=== PATIENT | female | born 1940 | race Caucasian/White ===

== ENCOUNTER 2018-05-26 15:32 | Inpatient (IN) | payer OTHER, MEDICARE ==
[~2018-05-26] VITALS: Ht 154.9 cm; Wt 61.2 kg
[2018-05-26 15:36] VITALS: BP 197/101
--- NOTE | 2018-05-26 15:45 | NUR ---
PT. BIB DAUGHTER DUE TO WEAKNESS X 3 MONTHS. PT STATES " I HAVE BEEN FEELING WEAK FOR ABOUT 3 MONTHS BUT TODAY I FELT WEAKER THAN NORMAL I THINK MY BLOOD PRESSURE IS HIGH AND I FEEL DIZZY". PT. DENIES ANY N/V/D. PT DENIES ANY PAIN AT THIS TIME JUST DIZZYNESS. PT REPORTS BLURRY VISION. PT. IS ABLE TO SPEAK IN FULL AND COMPLETE SENTENCES, RR EVEN AND UNLABORED. PERLL BILATERALLY 3MM. SAFETY PRECAUTIONS INITIATED. ER MD NOTIFIED. WILL CONTINUE TO MONITOR. VSS AT THIS TIME.
[2018-05-26] MEDS ORDERED: ASPIRIN 81 MG TAB.CHEW PO ONE (16:15)
--- NOTE | 2018-05-26 16:40 | NUR ---
Pt. is unable to provide urine at this time. rr even and unlabored. vss. Mother at bedside.
--- NOTE | 2018-05-26 16:45 | NUR ---
Radiology at bedside at this time.
[2018-05-26 16:47] LABS: BASOPHILS # (AUTO) 0.1 K/uL (0.00-0.22); BASOPHILS % (AUTO) 0.6 % (0.0-2.0); EOSINOPHILS % (AUTO) 0.3 % (0.0-4.0); HEMATOCRIT 40.7 % (36-48); HEMOGLOBIN 13.7 g/dL (12.0-16.0); LYMPHOCYTES # (AUTO) 2.2 K/uL (2.5-16.5); LYMPHOCYTES % (AUTO) 22.6 % (20.5-51.1); MEAN CORPUSCULAR HEMOGLOBIN 30 pg (27-31); MEAN CORPUSCULAR HGB CONC 34 g/dL (33-37); MONOCYTES # (AUTO) 0.6 K/uL (0.8-1.0); MONOCYTES % (AUTO) 6.5 % (1.7-9.3); NEUTROPHILS # (AUTO) 6.8 K/uL (1.8-7.7); PLATELET COUNT (AUTO) 285 K/uL (140-450); RED BLOOD CELL COUNT(AUTO) 4.57 MIL/uL (4.20-5.40); RED CELL DISTRIBUTION WIDTH 13.2 % (11.6-13.7); WHITE BLOOD COUNT (AUTO) 9.7 K/uL (4.8-10.8)
[2018-05-26 17:11] LABS: CHLORIDE 96 mmol/L (98-107); GLUCOSE 157 mg/dL (74-106); SODIUM SERUM 137 mmol/L (136-145)
[2018-05-26 17:12] LABS: ALBUMIN 3.9 g/dL (3.4-5.0); ASPARTATE AMINOTRANSFERASE 17 U/L (15-37); CREATININE 0.8 mg/dL (0.6-1.3); TOTAL BILIRUBIN 0.4 mg/dL (0.0-1.0); UREA NITROGEN, BLOOD 15 mg/dL (7-18)
[2018-05-26] MEDS ORDERED: NAPR-54 PO (17:12)
[2018-05-26] MEDS ORDERED: METF500T PO (17:12)
[2018-05-26] MEDS ORDERED: BENA20TA PO (17:12)
[2018-05-26] MEDS ORDERED: OMEP20TC12 PO (17:12)
[2018-05-26] MEDS ORDERED: ORE25 PO (17:12)
[2018-05-26] MEDS ORDERED: METO50TE2 PO (17:12)
--- NOTE | 2018-05-26 17:18 | NUR ---
PT. AMBULATED TO RESTROOM WITH ASSISTANCE OF DAUGHTER . STEADY GAIT.
[2018-05-26] MEDS ORDERED: MAGNESIUM OXIDE 400 MG TAB PO ONE (17:20)
[2018-05-26] MEDS ORDERED: POTASSIUM CHLORIDE 10 MEQ TABER PO ONE (17:20)
[2018-05-26 17:28] LABS: APPEARANCE,URINE CLEAR (CLEAR); BILIRUBIN,URINE NEGATIVE (NEGATIVE); BLOOD, URINE TRACE-L (NEGATIVE); LEUKOCYTE ESTERASE ,URINE NEGATIVE (NEGATIVE); NITRITE, URINE NEGATIVE (NEGATIVE); UGLUCOSE NEGATIVE (NEGATIVE)
[2018-05-26 17:29] LABS: COLOR,URINE STRAW (YELLOW)
--- NOTE | 2018-05-26 17:38 | NUR ---
DR. ONEILL AT BEDSIDE AT THIS TIME .
[2018-05-26 17:40] LABS: RBC,URINE 0-5 (RARE) /HPF (0-5); WBC,URINE NONE SEEN /HPF (0-5)
--- NOTE | 2018-05-26 18:44 | NUR ---
Patient will be admitted to [facility]. Admited to TELE. Will go to room 107A. Belongings list completed. Report to ASHLY BARBOSA .
[2018-05-26] MEDS ORDERED: ACETAMINOPHEN 325 MG TAB PO PRN (19:15)
[2018-05-26] MEDS ORDERED: MORPHINE SULFATE 2 MG/ML SYR IVP PRN (19:15)
[2018-05-26] MEDS ORDERED: ONDANSETRON 4 MG/2 ML VIAL IVP PRN (19:15)
[2018-05-26] MEDS ORDERED: cloNIDine 0.1 MG TAB PO PRN (19:15)
[2018-05-26] MEDS ORDERED: INSULIN LISPRO SLIDING SCALE 100 UNITS/ML VIAL SUBQ PRN (19:15)
[2018-05-26] MEDS ORDERED: DEXTROSE 50% 50 ML SYR IVP PRN (19:15)
--- NOTE | 2018-05-26 19:15 | NUR ---
RECEIVED REPORT FROM DAY SHIFT NURSE AT PT BEDSIDE. PT IN STABLE CONDITION. FAMILY IS AT BEDSIDE. PT IS A/O X4. RA. IV ACCESS IN L AC 22G SALINE LOCKED. IV IS PATENT AND INTACT. SKIN IS INTACT. PT HAS NO C/O PAIN AT THIS TIME. BED IS LOCKED, LOW POSITION, SIDE RAILS UP X2. CALL LIGHT IS WITHIN REACH. BOARD UPDATED. FALL PRECAUTIONS IN PLACE. WILL BEGIN ADMISSION PROCESS.
[2018-05-26 20:00] VITALS: BP 168/81
[2018-05-26] MEDS: BLOOD GLUCOSE MONITORING 1 DEV DEV FS SCH (20:12)
[2018-05-26] MEDS: METOPROLOL 50 MG TAB PO SCH (20:13)
--- NOTE | 2018-05-26 20:13 | NUR ---
BS CHECKED, 140. NO COVERAGE NEEDED PER MD ORDERS. SCHEDULED MEDICATION GIVEN. PT TOLERATED WELL. WILL CONTINUE TO MONITOR PT.
--- NOTE | 2018-05-26 22:40 | NUR ---
PT ASLEEP IN BED. NO S/SX OF DISTRESS. WILL CONTINUE TO MONITOR PT.
[2018-05-27] VITALS: BP 135/97
--- NOTE | 2018-05-27 00:37 | NUR ---
NO CHANGE IN CONDITION. WILL CONTINUE TO MONITOR PT.
[2018-05-27 01:36] LABS: CREATINE KINASE MB 4.7 ng/mL (0-3.6)
--- NOTE | 2018-05-27 03:05 | NUR ---
PT ASLEEP IN BED. NO SIGNS OF DISTRESS. WILL CONTINUE TO MONITOR.
[2018-05-27 04:00] VITALS: BP 147/61
--- NOTE | 2018-05-27 05:50 | NUR ---
BS CHECKED, 139. NO COVERAGE NEEDED PER MD ORDERS. PT IS AWAKE IN BED. ALL NEEDS ARE MET AT THIS TIME. WILL CONTINUE TO MONITOR.
[2018-05-27] MEDS: BLOOD GLUCOSE MONITORING 1 DEV DEV FS SCH ×3 (05:58→17:23)
--- NOTE | 2018-05-27 07:10 | NUR ---
ENDORSED PT TO DAY SHIFT NURSE FOR CONTINUITY OF CARE. PT IN STABLE CONDITION.
--- NOTE | 2018-05-27 07:12 | NUR ---
RECEIVED BEDSIDE REPORT FROM FACETER NURSE. PATIENT IS AWAKE, ALERT AND ORIENTEDX4. DAUGHTER AT BEDSIDE. BRUNEIAN SPEAKING ONLY. SHE IS A FALL RISK, FALL RISK PROTOCOL IN PLACE. AMBULATE W ASSIST D/T DIZZINESS. SKIN IS INTACT. TELE MONITOR IN PLACE IV ON L AC 22G SALINE LOCK, CLEAN, DRY AND INTACT. BED IN LOW POSITION. CALL LIGHT WITHIN REACH. WILL CONTINUE TO MONITOR THE PATIENT
[2018-05-27 07:57] LABS: BASOPHILS # (AUTO) 0.1 K/uL (0.00-0.22); BASOPHILS % (AUTO) 0.8 % (0.0-2.0); EOSINOPHILS # (AUTO) 0.1 K/uL (0-0.4); EOSINOPHILS % (AUTO) 0.8 % (0.0-4.0); HEMATOCRIT 40.2 % (36-48); HEMOGLOBIN 13.4 g/dL (12.0-16.0); LYMPHOCYTES # (AUTO) 2.2 K/uL (2.5-16.5); LYMPHOCYTES % (AUTO) 31.6 % (20.5-51.1); MEAN CORPUSCULAR HEMOGLOBIN 30 pg (27-31); MEAN CORPUSCULAR HGB CONC 33 g/dL (33-37); MEAN CORPUSCULAR VOLUME 89.2 fL (80-94); MONOCYTES # (AUTO) 0.5 K/uL (0.8-1.0); NEUTROPHILS # (AUTO) 4.1 K/uL (1.8-7.7); NEUTROPHILS % (AUTO) 59.8 % (42.2-75.2); PLATELET COUNT (AUTO) 276 K/uL (140-450); RED BLOOD CELL COUNT(AUTO) 4.51 MIL/uL (4.20-5.40); RED CELL DISTRIBUTION WIDTH 13.3 % (11.6-13.7); WHITE BLOOD COUNT (AUTO) 6.8 K/uL (4.8-10.8)
[2018-05-27 08:00] VITALS: BP 136/64
[2018-05-27] MEDS ORDERED: metFORMIN 500 MG TAB PO SCH (08:00)
[2018-05-27] MEDS: METOPROLOL 50 MG TAB PO SCH (08:19)
--- NOTE | 2018-05-27 08:26 | NUR ---
ADMINISTERED MEDS. PATIENT TOLERATED WELL. WILL CONTINUE TO MONITOR THE PATIENT. BED IN LOW POSITION. CALL LIGHT WITHIN REACH. DAUGHTER AT BEDSIDE.
[2018-05-27 08:40] LABS: ANION GAP 12.8 (8-16); CARBON DIOXIDE 29.7 mmol/L (21-32); CHLORIDE 100 mmol/L (98-107); CREATININE 0.7 mg/dL (0.6-1.3); GLUCOSE 125 mg/dL (74-106); POTASSIUM 3.5 mmol/L (3.5-5.1); SODIUM SERUM 139 mmol/L (136-145); UREA NITROGEN, BLOOD 13 mg/dL (7-18)
[2018-05-27] MEDS ORDERED: amLODIPine 5 MG TAB PO SCH (09:00)
[2018-05-27] MEDS ORDERED: ASPIRIN 81 MG TAB.CHEW PO SCH (09:00)
[2018-05-27] MEDS ORDERED: PANTOPRAZOLE 40 MG TABEC PO SCH (09:00)
[2018-05-27] MEDS ORDERED: BENAZEPRIL 20 MG TAB PO SCH (09:00)
[2018-05-27] MEDS ORDERED: ENOXAPARIN 40 MG/0.4 ML SYR SUBQ SCH (09:00)
--- NOTE | 2018-05-27 09:02 | NUR ---
PATIENT HAS BEEN SCREENED AND CATEGORIZED MODERATE NUTRITION RISK. PATIENT WILL BE SEEN WITHIN 3-5 DAYS OF ADMISSION. 05/29/18 05/31/[address]
--- NOTE | 2018-05-27 10:40 | NUR ---
PATIENT LAYING IN BED. NO SIGNS OF DISTRESS. DAUGHTER AT BEDSIDE. WILL CONTINUE TO MONITOR, BED IN LOW POSITION. CALL LIGHT WITHIN REACH. DAUGHTER IS GOING TO ASSIST PATIENT WITH A BED BATH
--- NOTE | 2018-05-27 11:53 | NUR ---
CM NOTE ADMISSION CHART REVIEW DONE. INITIAL REVIEW FAXED TO [facility] [phone] WILMA # [phone]
--- NOTE | 2018-05-27 11:53 | NUR ---
PATIENT LAYING IN BED WAITING TO BE SEEN BY THE DOCTOR, SHE WANTS TO KNOW IF SHE WILL BE GOING HOME TODAY. WILL AWAIT THE DRS ARRIVAL. PATIENT IN STABLE CONDITION. DAUGHTER AT BEDSIDE
[2018-05-27 12:00] VITALS: BP 129/54
--- NOTE | 2018-05-27 12:56 | NUR ---
PATIENT AMBULATED TO THE RESTROOM W ASSIST. SHE IS NOW BACK IN BED. NO SIGNS OF DISTRESS ON ROOM AIR. BED IN LOW POSITION. CALL LIGHT WITHIN REACH. WILL CONTINUE TO MONITOR
[2018-05-27 13:00] LABS: FREE T4 (FREE THYROXINE) 1.06 ng/dL (0.76-1.46); THYROID STIMULATING HORMONE 1.25 uIU/mL (0.34-3.74)
--- NOTE | 2018-05-27 13:39 | NUR ---
PATIENT LAYING IN BED. NO SIGNS OF DISTRESS. BED IN LOW POSITION. CALL LIGHT WITHIN REACH
[2018-05-27] MEDS ORDERED: MAG SULF 2000 MG/WATER PREMIX 50 ML IV ONE (13:50)
[2018-05-27] MEDS: MAGNESIUM SULFATE 1GM in DEXTROSE 5% 100 ML PREMIX IV SCH ×2 (14:44→17:16)
--- NOTE | 2018-05-27 14:46 | NUR ---
ADMINISTERED MG RIDER. IV IS CLEAN, DRY AND INTACT. WILL CONTINUE TO MONITOR THE PATIENT. CALL LIGHT WITHIN REACH
--- NOTE | 2018-05-27 14:48 | NUR ---
CM NOTE PER [facility] GRICEL DILLON # [phone], INSURANCE WILL NOT AUTHORIZE HOME PT UNLESS THERE'S A PT EVAL DONE THAT QUALIFIES THE PATIENT FOR HOME PT. CHARGE NURSE JOSEPH RAMIREZ.
[2018-05-27 16:00] VITALS: BP 105/53
--- NOTE | 2018-05-27 16:00 | NUR ---
VITALS ARE STABLE. PATIENT HAS NO COMPLAINTS AT THIS TIME. FAMILY AT BEDSIDE. WILL CONTINUE TO MONITOR THE PATINET
--- NOTE | 2018-05-27 17:18 | NUR ---
ADMINISTERED SECOND BAG OF MG RIDER AND PATIENT MAY LEAVE AFTER. WILL WORK ON DISCHARGE PAPERWOR
--- NOTE | 2018-05-27 17:59 | NUR ---
DAUGHTER IN LAW AT BEDSIDE. SHE IS GOING TO TAKE PATIENT HOME WHEN MG RIDER IS DONE. EDUCATED PATIENT AND FAMILY ON DISEASE PROCESS, ABN S/SX WHEN TO GO TO THE ER, EDUCATED ON CONTINUITY OF MEDS, EDUCATED ON F/U W PCP IN A WEEK. PATIENT VERBALIZED UNDERSTANDING AND SIGNED DISCHARGE PAPERWORK. ONCE MED IS DONE PATIENT WILL BE DISCHARGED. PATIENT REFUSED PNA VACCINE
--- NOTE | 2018-05-27 18:50 | NUR ---
REMOVED IV TIP IS INTACT. ID BANDS REMOVED. PATIENT LEFT IN STABLE CONDITION W DAUGHTER IN LAW.
== END 2018-05-27 18:50 | disposition home or self-care (01) | DRG 199 ==
LOC: MED 15:32 → MTU 18:21
PROVIDERS: ADMIT Internal Medicine; ATTEND Internal Medicine
DX: I10 Essential (primary) hypertension (principal); E11.65 Type 2 diabetes mellitus with hyperglycemia; I44.7 Left bundle-branch block, unspecified; R07.9 Chest pain, unspecified; K21.9 Gastro-esophageal reflux disease without esophagitis; F32.9 Major depressive disorder, single episode, unspecified; M19.90 Unspecified osteoarthritis, unspecified site; E87.6 Hypokalemia; Z79.84 Long term (current) use of oral hypoglycemic drugs; Z79.899 Other long term (current) drug therapy; Z90.49 Acquired absence of other specified parts of digestive tract
CPT/HCPCS: 36415; 71045; 80048; 80053; 81001; 82550; 82553; 82948; 83690; 83735; 83880; 84439; 84443; 84484; 85025; 87081; 93005; 99285; J1650; J1815; J7030; Q0092

== ENCOUNTER 2018-09-20 21:51 | Emergency (ER) | payer OTHER, MEDICARE ==
[~2018-09-20] VITALS: Ht 152.4 cm; Wt 61.2 kg
[~2018-09-20 21:51] MED LIST: BENA20TA PO; METF500T PO; METO50TE2 PO; OMEP20TC12 PO; ORE25 PO
[2018-09-20 21:55] VITALS: BP 177/104
[2018-09-20] MEDS: NACL 0.9% 1,000 ML IV ONE (22:58)
[2018-09-20] MEDS: KETOROLAC 30 MG/ML VIAL IVP ONE (22:58)
[2018-09-20] MEDS: ONDANSETRON 4 MG/2 ML VIAL IVP ONE (22:58)
[2018-09-21 00:15] VITALS: BP 158/74
== END 2018-09-21 00:15 | disposition home or self-care (01) ==
LOC: MED 21:51
DX: R10.13 Epigastric pain (principal); R11.2 Nausea with vomiting, unspecified; R19.7 Diarrhea, unspecified; E11.9 Type 2 diabetes mellitus without complications; I10 Essential (primary) hypertension; Z90.49 Acquired absence of other specified parts of digestive tract; Z79.84 Long term (current) use of oral hypoglycemic drugs; Z79.899 Other long term (current) drug therapy
CPT/HCPCS: 81002; 96361; 96374; 96375; 99283; J1885; J2405; J7030

== ENCOUNTER 2018-09-21 15:13 | Inpatient (IN) | payer OTHER, MEDICARE ==
[~2018-09-21] VITALS: Ht 149.9 cm; Wt 58.1 kg
[2018-09-21 16:05] VITALS: BP 178/85
--- NOTE | 2018-09-21 16:30 | NUR ---
MARIBEL COMER WITH C/O DIARRHEA X 3 DAYS WITH DIZZINESS. PREVIOUS VOMITING X 2 DAYS. WAS SEEN YESTERDAY FOR THE SAME N/V. VSS; PATIENT POSITIONED FOR COMFORT; HOB ELEVATED; BEDRAILS UP X2; BED DOWN. ER MD MADE AWARE OF PT STATUS.
[2018-09-21 16:53] LABS: BASOPHILS % (AUTO) 0.3 % (0.0-2.0); HEMATOCRIT 43.8 % (36-48); HEMOGLOBIN 14.3 g/dL (12.0-16.0); LYMPHOCYTES % (AUTO) 12.6 % (20.5-51.1); MEAN CORPUSCULAR HEMOGLOBIN 30 pg (27-31); MEAN CORPUSCULAR HGB CONC 33 g/dL (33-37); MEAN CORPUSCULAR VOLUME 90.1 fL (80-94); MONOCYTES # (AUTO) 0.5 K/uL (0.8-1.0); MONOCYTES % (AUTO) 6.6 % (1.7-9.3); NEUTROPHILS # (AUTO) 6.2 K/uL (1.8-7.7); NEUTROPHILS % (AUTO) 80.5 % (42.2-75.2); PLATELET COUNT (AUTO) 260 K/uL (140-450); RED BLOOD CELL COUNT(AUTO) 4.86 MIL/uL (4.20-5.40); RED CELL DISTRIBUTION WIDTH 13.7 % (11.6-13.7); WHITE BLOOD COUNT (AUTO) 7.7 K/uL (4.8-10.8)
[2018-09-21 17:08] LABS: ALBUMIN 3.8 g/dL (3.4-5.0); ASPARTATE AMINOTRANSFERASE 27 U/L (15-37); CHLORIDE 104 mmol/L (98-107); CREATININE 0.8 mg/dL (0.6-1.3); GLUCOSE 141 mg/dL (74-106); SODIUM SERUM 141 mmol/L (136-145); TOTAL BILIRUBIN 0.3 mg/dL (0.0-1.0); UREA NITROGEN, BLOOD 24 mg/dL (7-18)
[2018-09-21] MEDS ORDERED: NACL 0.9% 1,000 ML IV ONE (17:50)
[2018-09-21] MEDS ORDERED: POTASSIUM CHLORIDE 10 MEQ TABER PO ONE (17:50)
[2018-09-21] MEDS ORDERED: INSULIN LISPRO SLIDING SCALE 100 UNITS/ML VIAL SUBQ PRN (19:10)
[2018-09-21] MEDS ORDERED: DEXTROSE 50% 50 ML SYR IVP PRN (19:10)
[2018-09-21] MEDS ORDERED: ONDANSETRON 4 MG/2 ML VIAL IVP PRN (19:10)
[2018-09-21] MEDS ORDERED: ACETAMINOPHEN 325 MG TAB PO PRN (19:10)
[2018-09-21] MEDS ORDERED: POTASSIUM CHL 20MEQ/D5-NS 1,000 ML IV ONE (19:10)
--- NOTE | 2018-09-21 19:10 | NUR ---
RECEIVED REPORT FROM ASHLY DE LOS SANTOS FOR CONTINUITY OF CARE. PT STABLE RESTING IN BED.
[2018-09-21 19:15] LABS: APPEARANCE,URINE CLEAR (CLEAR); BILIRUBIN,URINE NEGATIVE (NEGATIVE); BLOOD, URINE 2+ (NEGATIVE); COLOR,URINE YELLOW (YELLOW); LEUKOCYTE ESTERASE ,URINE NEGATIVE (NEGATIVE); NITRITE, URINE NEGATIVE (NEGATIVE); UGLUCOSE NEGATIVE (NEGATIVE)
[2018-09-21 19:16] LABS: RBC,URINE 0-5 (RARE) /HPF (0-5); WBC,URINE 0-5 (RARE) /HPF (0-5)
[2018-09-21 19:17] LABS: URINE AMORPHOUS URATE 1+ /HPF (None Seen)
[2018-09-21] MEDS ORDERED: cloNIDine 0.1 MG TAB PO PRN (19:20)
--- NOTE | 2018-09-21 19:55 | NUR ---
PT ARRIVED ON UNIT VIA GURNEY WITH ER NURSE. PT ABLE TO AMBULATE FROM GURNEY INTO BED. PT ACCOMPANIED BY FAMILY MEMBERS. PT IS AAOX4. PT IS ON RA WITH RESPIRATIONS EVEN AND UNLABORED. IV ACCES IN SHARI, SALINE LOCKED. IV IS PATENT AND INTACT. PT SKIN IS INTACT. NO C/O PAIN AT THIS TIME. MRSA SWAB COLLECTED. STOOL CULTURE PENDING, HAT PLACED IN BATHROOM FOR COLLECTION. PT EDUCATED ON IMPORTANCE AND VERBALIZED UNDERSTANDING. ORIENTED PT TO UNIT AND USE OF CALL LIGHT. BED IS LOCKED, LOW POSITION WITH SIDE RAILS UPX2. CALL LIGHT IS WITHIN REACH. BOARD UPDATED. WILL CONTINUE TO MONITOR.
--- NOTE | 2018-09-21 19:55 | NUR ---
REPORT GIVEN AND CARE TRANSFERED TO RAQUEL RN ROOM 114. TRANSFERED VIA GURNEY WITH VSS.
[2018-09-21 20:00] VITALS: BP 159/55
[2018-09-21] MEDS: BLOOD GLUCOSE MONITORING 1 DEV DEV FS SCH (21:12)
--- NOTE | 2018-09-21 21:13 | NUR ---
BS CHECKED, 116. NO COVERAGE NEEDED PER MD ORDERS.
[2018-09-21] MEDS: metroNIDAZOLE 500 MG/NS PREMIX 100 ML IV SCH (21:35)
[2018-09-21] MEDS: LEVOFLOXACIN 250 MG/D5 PREMIX 50 ML IV SCH (21:36)
--- NOTE | 2018-09-21 21:40 | NUR ---
IVF STARTED. ADMINISTERED SCHEDULED ANTIBIOTICS. STOOL SAMPLE COLLECTED. PT TOLERATED WELL. NO SIGNS OR SYMPTOMS OF DISTRESS. WILL CONTINUE TO MONITOR.
[2018-09-21] MEDS ORDERED: INFLUENZA VIRUS VACCINE QUAD 0.5 ML SYR IMVAC PRN (23:20)
[2018-09-21] MEDS ORDERED: PNEUMOCOCCAL VACCINE 23 MCG/0.5 ML VIAL IMVAC SCH (23:20)
[2018-09-22] VITALS: BP 106/67
--- NOTE | 2018-09-22 00:12 | NUR ---
VS WNL. PT RESTING COMFORTABLY IN BED. NO SIGNS OR SYMPTOMS OF DISTRESS. WILL CONTINUE TO MONITOR.
[2018-09-22] MEDS: metroNIDAZOLE 500 MG/NS PREMIX 100 ML IV SCH ×3 (05:46→22:01)
[2018-09-22] MEDS: PANTOPRAZOLE 40 MG TABEC PO SCH (05:46)
[2018-09-22] MEDS: BLOOD GLUCOSE MONITORING 1 DEV DEV FS SCH ×4 (05:49→21:10)
--- NOTE | 2018-09-22 05:51 | NUR ---
SCHEDULED MEDICATIONS ADMINISTERED. BS CHECKED, 123. NO COVERAGE NEEDED PER MD ORDERS. INCOME TAX ADMINISTRATOR AT BEDSIDE. PT TOLERATING WELL. NO SIGNS OR SYMPTOMS OF DISTRESS. WILL CONTINUE TO MONITOR.
[2018-09-22 07:18] LABS: BASOPHILS % (AUTO) 0.2 % (0.0-2.0); EOSINOPHILS % (AUTO) 0.6 % (0.0-4.0); HEMATOCRIT 36.7 % (36-48); LYMPHOCYTES # (AUTO) 1.3 K/uL (2.5-16.5); LYMPHOCYTES % (AUTO) 22.3 % (20.5-51.1); MEAN CORPUSCULAR HEMOGLOBIN 29 pg (27-31); MEAN CORPUSCULAR HGB CONC 33 g/dL (33-37); MONOCYTES # (AUTO) 0.6 K/uL (0.8-1.0); MONOCYTES % (AUTO) 9.8 % (1.7-9.3); NEUTROPHILS # (AUTO) 3.8 K/uL (1.8-7.7); NEUTROPHILS % (AUTO) 67.1 % (42.2-75.2); PLATELET COUNT (AUTO) 216 K/uL (140-450); RED BLOOD CELL COUNT(AUTO) 4.08 MIL/uL (4.20-5.40); RED CELL DISTRIBUTION WIDTH 13.6 % (11.6-13.7); WHITE BLOOD COUNT (AUTO) 5.7 K/uL (4.8-10.8)
--- NOTE | 2018-09-22 07:20 | NUR ---
PT REPORT RECEIVED FROM SECRETARIAL STENOGRAPHER NURSE. PT IS AWAKE AND ALERT, DAUGHTER IN LAW AT BEDSIDE. PT IS AMBULATORY AND IS GOING TO THE BATHROOM AT THIS TIME. IV SITE NOTED ON THE RUE, 20 GAUGE, INFUSING D5NS KCL 20 MEQ AT 80 ML/HR. ON ROOM AIR, SKIN IS INTACT. FALL PRECAUTIONS ARE IN PLACE. CALL LIGHT WITHIN REACH. WILL CONTINUE TO MONITOR.
--- NOTE | 2018-09-22 07:20 | NUR ---
ENDORSED PT TO DAY SHIFT NURSE FOR CONTINUITY OF CARE. PT IN STABLE CONDITION.
[2018-09-22 08:00] VITALS: BP 158/61
[2018-09-22 08:36] LABS: ALBUMIN 2.9 g/dL (3.4-5.0); ANION GAP 15.7 (8-16); ASPARTATE AMINOTRANSFERASE 21 U/L (15-37); CARBON DIOXIDE 23.6 mmol/L (21-32); CHLORIDE 103 mmol/L (98-107); CREATININE 0.6 mg/dL (0.6-1.3); GLUCOSE 125 mg/dL (74-106); MAGNESIUM 1.4 mg/dL (1.8-2.4); POTASSIUM 3.3 mmol/L (3.5-5.1); SODIUM SERUM 139 mmol/L (136-145); TOTAL BILIRUBIN 0.3 mg/dL (0.0-1.0); UREA NITROGEN, BLOOD 10 mg/dL (7-18)
--- NOTE | 2018-09-22 08:41 | NUR ---
PATIENT HAS BEEN SCREENED AND CATEGORIZED HIGH NUTRITION RISK. PATIENT WILL BE SEEN WITHIN 1-2 DAYS OF ADMISSION. 09/22/18-09/23/[address]
[2018-09-22] MEDS: METOPROLOL SUCCINATE 50 MG TABER PO SCH (09:11)
[2018-09-22] MEDS: ENOXAPARIN 40 MG/0.4 ML SYR SUBQ SCH (09:12)
[2018-09-22] MEDS: BENAZEPRIL 20 MG TAB PO SCH (09:12)
--- NOTE | 2018-09-22 13:08 | NUR ---
09/22/18 RD INITIAL ASSESSMENT COMPLETED PLEASE REFER TO NUTRITION ASSESSMENT UNDER CARE ACTIVITY FOR ESTIMATED NUTRITIONAL NEEDS. 1. CONTINUE 60 GM CCHO DIET TOLERATED 2. DIETITIAN PROVIDED NUTRITION EDUCATION ON DIARRHEA AND DIABETES 3. RD TO FOLLOW-UP 3-5 DAYS, MODERATE RISK ADINA CHARLOTN RD
--- NOTE | 2018-09-22 13:57 | NUR ---
PT IS AWAKE WITH FAMILY ON THE BEDSIDE, FLAGYL WAS GIVEN VIA IVPB, PT TOLERATING IT. WILL INFORM RN ON DUTY.
--- NOTE | 2018-09-22 15:00 | NUR ---
CM NOTE CHART REVIEW DONE
[2018-09-22] MEDS ORDERED: POTASSIUM CHLORIDE 20% 40 MEQ/15 ML UDC PO SCH (15:15)
[2018-09-22] MEDS ORDERED: MAG SULF 2000 MG/WATER PREMIX 50 ML IV SCH (15:30)
--- NOTE | 2018-09-22 15:33 | NUR ---
PT IS AWAKE AND FAMILY ON THE BEDSIDE, POTASSIUM ORAL WAS GIVEN FOR THE LEVEL 0F 3.3 AND MAGNESIUM IVPB WAS GIVEN ALSO FOR THE LEVEL OF 1.4, PT TOLERATED IT. WILL NOTIFY AM RN ON DUTY.
[2018-09-22 16:00] VITALS: BP 163/59
--- NOTE | 2018-09-22 17:00 | NUR ---
PAGED ABOUT PT'S HIGH BLOOD PRESSURE, HE ORDERED PRN CLONIDINE 0.1 MG FOR SBP ABOVE 160. WILL CONTINUE TO MONITOR PT'S BP.
--- NOTE | 2018-09-22 18:00 | NUR ---
PT HAD AN EPISODE OF DIARRHEA. PER FAMILY, THE PT HAS HAD DIARRHEA SEVERAL TIMES TODAY. STOOL SAMPLE ALREADY PENDING IN THE LAB.
[2018-09-22] MEDS: cloNIDine 0.1 MG TAB PO PRN (19:02)
--- NOTE | 2018-09-22 19:20 | NUR ---
PT ENDORSED TO ORIENTAL RUG STRETCHER NURSE IN STABLE CONDITION.
--- NOTE | 2018-09-22 19:21 | NUR ---
RECEIVED BEDSIDE REPORT. PT IS BENGALI SPEAKING ONLY. A&OX4 SON AND DAUGHTER IN LAW AT BEDSIDE. RESPIRATIONS ARE EQUAL AND UNLABORED. PT COMPLAINING OF DISCOMFORT ON IV. IV IS INTACT FLUSHING WELL AND GOOD BLOOD RETURN BUT REQUESTING NEW IV SITE. IV CATH REMOVED CATHETER IS INTACT. WILL START NEW IV. SKIN IS INTACT. PT ABLE TO AMBULATE WITH ASSISTANCE. FALL PROTOCOL IN PLACE. PLAN F CARE WAS DISCUSSED WITH PATIENT AND FAMILY. WILL CONTINUE TO MONITOR
[2018-09-22] MEDS: POTASSIUM CHL 20MEQ/D5-NS 1,000 ML IV SCH (19:30)
[2018-09-22] MEDS: LEVOFLOXACIN 250 MG/D5 PREMIX 50 ML IV SCH (20:00)
--- NOTE | 2018-09-22 20:00 | NUR ---
NEW IV STARTED ON LEFT FA 22G NOW INFUSING IVF PER ORDERS. ALL NEEDS MET AT THIS TIME WILL CONTINUE TO MONITOR. Addendum: 09/22/18 at 2238 by Teressa Melendez RN NEW IV IS 20G
--- NOTE | 2018-09-22 22:01 | NUR ---
FLAGYL INFUSING PER ORDERS. PT DENIES ANY DISCOMFORT ON NEW IV. ALL NEEDS MET AT THIS TIME.
[2018-09-22 23:37] VITALS: BP 137/52
--- NOTE | 2018-09-23 | NUR ---
VITAL SIGNS ARE WITHIN NORMAL LIMITS. PT DENIES ANY SOB OR PAIN. DAUGHTER IS AT BEDSIDE. ALL NEEDS MET AT THIS TIME. WILL CONTINUE TO MONITOR.
--- NOTE | 2018-09-23 02:15 | NUR ---
PT SLEEPING RESPIRATIONS ARE EQUAL AND UNLABORED. CALL LIGHT WITHIN REACH.
--- NOTE | 2018-09-23 03:33 | NUR ---
PT SLEEPING COMFORTABLY IN BED. RESPIRATIONS ARE EQUAL AND UNLABORED. ALL SAFETY MEASURES ARE IN PLACE.CALL LIGHT WITHIN REACH
--- NOTE | 2018-09-23 05:30 | NUR ---
BLOOD SUGAR 128 NO COVERAGE NEEDED. DUE MEDICATIONS GIVEN. FLAGYL NOW INFUSING PER ORDERS. SAFETY MEASURES ARE IN PLACE.
[2018-09-23] MEDS: metroNIDAZOLE 500 MG/NS PREMIX 100 ML IV SCH ×2 (05:31→12:23)
[2018-09-23] MEDS: PANTOPRAZOLE 40 MG TABEC PO SCH (05:31)
[2018-09-23] MEDS: BLOOD GLUCOSE MONITORING 1 DEV DEV FS SCH ×3 (05:56→16:38)
[2018-09-23 07:15] LABS: BASOPHILS % (AUTO) 0.6 % (0.0-2.0); EOSINOPHILS # (AUTO) 0.1 K/uL (0-0.4); EOSINOPHILS % (AUTO) 1.1 % (0.0-4.0); HEMATOCRIT 37.3 % (36-48); HEMOGLOBIN 12.3 g/dL (12.0-16.0); LYMPHOCYTES # (AUTO) 1.2 K/uL (2.5-16.5); LYMPHOCYTES % (AUTO) 24.5 % (20.5-51.1); MEAN CORPUSCULAR HEMOGLOBIN 29 pg (27-31); MEAN CORPUSCULAR HGB CONC 33 g/dL (33-37); MEAN CORPUSCULAR VOLUME 89.3 fL (80-94); MONOCYTES # (AUTO) 0.6 K/uL (0.8-1.0); MONOCYTES % (AUTO) 11.1 % (1.7-9.3); NEUTROPHILS # (AUTO) 3.1 K/uL (1.8-7.7); NEUTROPHILS % (AUTO) 62.7 % (42.2-75.2); PLATELET COUNT (AUTO) 230 K/uL (140-450); RED BLOOD CELL COUNT(AUTO) 4.17 MIL/uL (4.20-5.40); RED CELL DISTRIBUTION WIDTH 13.5 % (11.6-13.7)
--- NOTE | 2018-09-23 07:16 | NUR ---
ENDORSED TO DAY SHIFT. PT IS STABLE.
--- NOTE | 2018-09-23 07:21 | NUR ---
ENDORSED TO DAY SHIFT. PT IS STABLE.
--- NOTE | 2018-09-23 07:25 | NUR ---
[id number] PT FROM CIDER MAKER NURSE, PT IS AWAKE AND LYING ON THE BED WITH DAUGHTER IN LAW ON THE BEDSIDE, SIDE RAILS ARE UP AND CALL LIGHT WITHIN REACH, SAFETY AND FALL PRECAUTION INITIATED. PT DENIES PAIN AND NO SOB NOTED. PT HAS AN IV LINE ON THE LEFT FA G.20 WITH D5NS KCL INFUSING AT 80ML/HR, INTACT. NO SIGN OF DISTRESS NOTED AND WILL CONTINUE TO MONITOR PT.
[2018-09-23 08:00] VITALS: BP 156/51
[2018-09-23] MEDS: BENAZEPRIL 20 MG TAB PO SCH (08:44)
[2018-09-23] MEDS: METOPROLOL SUCCINATE 50 MG TABER PO SCH (08:45)
[2018-09-23] MEDS: ENOXAPARIN 40 MG/0.4 ML SYR SUBQ SCH (08:46)
[2018-09-23 08:47] LABS: CARBON DIOXIDE 27.1 mmol/L (21-32); CHLORIDE 103 mmol/L (98-107); CREATININE 0.6 mg/dL (0.6-1.3); GLUCOSE 111 mg/dL (74-106); POTASSIUM 3.1 mmol/L (3.5-5.1); SODIUM SERUM 140 mmol/L (136-145); TOTAL BILIRUBIN 0.4 mg/dL (0.0-1.0); UREA NITROGEN, BLOOD 4 mg/dL (7-18)
[2018-09-23 08:48] LABS: ALBUMIN 2.9 g/dL (3.4-5.0); ASPARTATE AMINOTRANSFERASE 21 U/L (15-37)
[2018-09-23] MEDS: POTASSIUM CHL 20MEQ/D5-NS 1,000 ML IV SCH (08:55)
--- NOTE | 2018-09-23 08:59 | NUR ---
PT IS AWAKE WITH DAUGHTER ON THE BEDSIDE, ORAL MEDICATIONS GIVEN AND PT TOLERATED IT, VITAL SIGNS TAKEN AND IS WITHIN NORMAL LIMIT. NO SIGN OF DISTRESS NOTED AND NO SOB AND PT DENIES PAIN. WILL CONTINUE TO MONITOR PT.
--- NOTE | 2018-09-23 10:15 | NUR ---
CM NOTE PER STELLA OF [facility] (PCP) PH# [phone], PATIENT IS SCHEDULED FOR OUTPATIENT FOLLOW UP APPOINTMENT ON SEPTEMBER 24, 2018 3:00PM AT THE CLINIC [id number] [facility] [id number] [address] I GAVE PATIENT WITH DAUGHTER IN LAW [place] BEDSIDE A COPY OF HER OUTPATIENT FOLLOW UP SCHEDULE.
--- NOTE | 2018-09-23 11:54 | NUR ---
PT IS AWAKE AND DAUGHTER IN LAW IN THE BEDSIDE, V/S TAKEN BECAUSE PT [id number] THAT IT SEEMS HER BP IS HIGH BUT RESULT IS 148/59, PULSE IS 63. BLOOD GLUCOSE CHECK DONE AND RESULT IS 147 AND NO INSULIN COVERAGE NEEDED. WILL MONITOR PT.
--- NOTE | 2018-09-23 12:27 | NUR ---
PT IS AWAKE AND EATING HER LUNCH, IV MEDICATION WAS GIVEN VIA PIGGYBACK AND PT TOLERATED IT. NO SIGN OF DISTRESS NOTED AND WILL CONTINUE TO MONITOR PT.
[2018-09-23] MEDS ORDERED: LOPE-143 PO (15:40)
[2018-09-23 16:00] VITALS: BP 168/66
[2018-09-23] MEDS: cloNIDine 0.1 MG TAB PO PRN (16:37)
--- NOTE | 2018-09-23 16:40 | NUR ---
PT IS AWAKE AND AGREED TO RECEIVE THE FLU VACCINE, VACCINE GIVEN ON THE LEFT DELTOID IM, PT TOLERATED IT.
--- NOTE | 2018-09-23 16:43 | NUR ---
PT IS AWAKE AND PNA VACCINE WAS GIVEN ON THE RT DELTOID, IM. PT TOLERATED IT.
--- NOTE | 2018-09-23 16:49 | NUR ---
PT IS AWAKE AND DAUGHTER IN LAW ON THE BEDSIDE, VITAL SIGNS TAKEN AND BP IS 168/66 PULSE IS 62, BP MEDICATION GIVEN TO PT, WILL RE-ASSESS BP.
[2018-09-23 18:00] VITALS: BP 152/78
--- NOTE | 2018-09-23 18:00 | NUR ---
PT'S BP WAS RE-ASSESSED AND RESULT IS 152/78, PULSE IS 66, PT DENIES PAIN AND NO SIGN OF DISTRESS NOTED. WILL FACILITATE DISCHARGE PROCESS.
--- NOTE | 2018-09-23 18:30 | NUR ---
DISCHARGED PT VIA WHEELCHAIR WITH FAMILY, DISCHARGE TEACHING AND INSTRUCTIONS GIVEN AND PT VERBALIZED UNDERSTANDING, IV LINE AND ARM BAND REMOVED, PT IS STABLE AT THIS TIME.
== END 2018-09-23 18:30 | disposition home or self-care (01) | DRG 249 ==
LOC: MED 15:13 → MTU 19:16
PROVIDERS: ADMIT Internal Medicine; ATTEND Internal Medicine
PROC: 3E0234Z Introduction of Serum, Toxoid and Vaccine into Muscle, Percutaneous Approach (ICD-10-PCS; principal; 2018-09-23)
PROC: 3E0234Z Introduction of Serum, Toxoid and Vaccine into Muscle, Percutaneous Approach (ICD-10-PCS; 2018-09-23)
DX: K52.9 Noninfective gastroenteritis and colitis, unspecified (principal); E86.0 Dehydration; E11.9 Type 2 diabetes mellitus without complications; E87.6 Hypokalemia; I10 Essential (primary) hypertension; Z79.84 Long term (current) use of oral hypoglycemic drugs; Z79.899 Other long term (current) drug therapy; Z23 Encounter for immunization
CPT/HCPCS: 36415; 80053; 81001; 82948; 83735; 85025; 87045; 87070; 87081; 87086; 90658; 90732; 96360; 99285; J1650; J1815; J1956; J3475; J3490; Q9967

== ENCOUNTER 2019-05-19 10:10 | Emergency (ER) | payer OTHER ==
[~2019-05-19] VITALS: Ht 142.2 cm; Wt 61.2 kg
[~2019-05-19 10:10] MED LIST changes: +LOPE-143 PO
[2019-05-19 10:16] VITALS: BP 131/99
--- NOTE | 2019-05-19 10:20 | NUR ---
C/O COUGH SINCE YESTERDAY, + HEADACHE, GENERALZED WEAKNESS. HX HTN, DM
[2019-05-19] MEDS ORDERED: PRED10TA5 PO (10:23)
[2019-05-19] MEDS ORDERED: LISI-420 PO (10:23)
[2019-05-19 12:11] LABS: BASOPHILS # (AUTO) 0.1 K/uL (0.00-0.22); BASOPHILS % (AUTO) 0.7 % (0.0-2.0); EOSINOPHILS # (AUTO) 0.2 K/uL (0-0.4); EOSINOPHILS % (AUTO) 1.3 % (0.0-4.0); HEMATOCRIT 37.7 % (36-48); HEMOGLOBIN 12.7 g/dL (12.0-16.0); LYMPHOCYTES # (AUTO) 1.9 K/uL (2.5-16.5); LYMPHOCYTES % (AUTO) 16.1 % (20.5-51.1); MEAN CORPUSCULAR HEMOGLOBIN 31 pg (27-31); MEAN CORPUSCULAR HGB CONC 34 g/dL (33-37); MEAN CORPUSCULAR VOLUME 90.4 fL (80-94); MONOCYTES # (AUTO) 0.6 K/uL (0.8-1.0); MONOCYTES % (AUTO) 5.3 % (1.7-9.3); NEUTROPHILS # (AUTO) 9.1 K/uL (1.8-7.7); NEUTROPHILS % (AUTO) 76.6 % (42.2-75.2); PLATELET COUNT (AUTO) 337 K/uL (140-450); RED BLOOD CELL COUNT(AUTO) 4.17 MIL/uL (4.20-5.40); RED CELL DISTRIBUTION WIDTH 13.3 % (11.6-13.7); WHITE BLOOD COUNT (AUTO) 11.9 K/uL (4.8-10.8)
[2019-05-19 12:30] LABS: ALBUMIN 3.4 g/dL (3.4-5.0); ASPARTATE AMINOTRANSFERASE 12 U/L (15-37); CARBON DIOXIDE 30.9 mmol/L (21-32); CHLORIDE 100 mmol/L (98-107); GLUCOSE 134 mg/dL (74-106); POTASSIUM 3.9 mmol/L (3.5-5.1); SODIUM SERUM 139 mmol/L (136-145); TOTAL BILIRUBIN 0.3 mg/dL (0.0-1.0); UREA NITROGEN, BLOOD 18 mg/dL (7-18)
[2019-05-19 13:37] VITALS: BP 121/78
--- NOTE | 2019-05-19 13:37 | NUR ---
Patient discharged with v/s stable. Written and verbal after care instructions given and explained. Patient alert, oriented and verbalized understanding of instructions. Ambulatory with steady gait. All questions addressed prior to discharge. ID band removed. Patient advised to follow up with PMD. Rx of Levaquin, Guaiatussin given. Patient educated on indication of medication including possible reaction and side effects. Opportunity to ask questions provided and answered. Patient accompanied by daughter gale.
== END 2019-05-19 13:45 | disposition home or self-care (01) ==
LOC: MED 10:10
DX: J18.9 Pneumonia, unspecified organism (principal); E11.9 Type 2 diabetes mellitus without complications; I10 Essential (primary) hypertension; Z98.890 Other specified postprocedural states; Z79.84 Long term (current) use of oral hypoglycemic drugs; Z79.899 Other long term (current) drug therapy
CPT/HCPCS: 36415; 71045; 80053; 85025; 99284; Q0092

== ENCOUNTER 2019-06-25 16:13 | Emergency (ER) | payer OTHER ==
[~2019-06-25] VITALS: Ht 152.4 cm; Wt 60.1 kg
[~2019-06-25 16:13] MED LIST changes: -BENA20TA PO; +LISI-420 PO; -OMEP20TC12 PO; +PRED10TA5 PO
[2019-06-25 16:20] VITALS: BP 154/68
[2019-06-25] MEDS ORDERED: ASPIRIN 81 MG TAB.CHEW PO ONE (16:55)
[2019-06-25] MEDS ORDERED: KETOROLAC 30 MG/ML VIAL IVP ONE (17:20)
[2019-06-25 17:43] LABS: BASOPHILS % (AUTO) 0.3 % (0.0-2.0); EOSINOPHILS % (AUTO) 0.4 % (0.0-4.0); HEMOGLOBIN 12.6 g/dL (12.0-16.0); LYMPHOCYTES # (AUTO) 1.9 K/uL (2.5-16.5); LYMPHOCYTES % (AUTO) 17.7 % (20.5-51.1); MEAN CORPUSCULAR HEMOGLOBIN 30 pg (27-31); MEAN CORPUSCULAR HGB CONC 33 g/dL (33-37); MEAN CORPUSCULAR VOLUME 91.3 fL (80-94); MONOCYTES # (AUTO) 0.6 K/uL (0.8-1.0); MONOCYTES % (AUTO) 5.8 % (1.7-9.3); NEUTROPHILS # (AUTO) 8.1 K/uL (1.8-7.7); NEUTROPHILS % (AUTO) 75.8 % (42.2-75.2); PLATELET COUNT (AUTO) 305 K/uL (140-450); RED BLOOD CELL COUNT(AUTO) 4.16 MIL/uL (4.20-5.40); RED CELL DISTRIBUTION WIDTH 13.2 % (11.6-13.7); WHITE BLOOD COUNT (AUTO) 10.6 K/uL (4.8-10.8)
[2019-06-25 17:58] LABS: PROTHROMBIN TIME 9.5 secs (10.8-13.4)
[2019-06-25 18:00] LABS: ANION GAP 10.9 (8-16); CARBON DIOXIDE 30.4 mmol/L (21-32); CHLORIDE 100 mmol/L (98-107); CREATININE 1.2 mg/dL (0.6-1.3); GLUCOSE 120 mg/dL (74-106); POTASSIUM 3.3 mmol/L (3.5-5.1); SODIUM SERUM 138 mmol/L (136-145); UREA NITROGEN, BLOOD 21 mg/dL (7-18)
[2019-06-25 18:06] LABS: ALBUMIN 3.5 g/dL (3.4-5.0); ASPARTATE AMINOTRANSFERASE 15 U/L (15-37); TOTAL BILIRUBIN 0.2 mg/dL (0.0-1.0)
[2019-06-25 18:48] VITALS: BP 147/72
== END 2019-06-25 18:48 | disposition home or self-care (01) ==
LOC: MED 16:13
DX: R07.89 Other chest pain (principal); E11.9 Type 2 diabetes mellitus without complications; I10 Essential (primary) hypertension; Z79.84 Long term (current) use of oral hypoglycemic drugs; Z79.899 Other long term (current) drug therapy
CPT/HCPCS: 36415; 71045; 80053; 84484; 85025; 85610; 85730; 93005; 96374; 99284; J1885